=== PATIENT | female | born 1930 | race Caucasian/White ===

== ENCOUNTER 2016-08-13 17:36 | Observation (INO) | payer MEDICARE, BC ==
[2016-08-13] MEDS ORDERED: SODIUM CHLORIDE 0.9% 1,000 ML IV ONE ×2 (18:04→20:58)
[2016-08-13] MEDS ORDERED: DIPH,PERTUS(ACELL)TETVAC-LF 0.5 ML VIAL IM ONE (18:10)
[2016-08-13 18:35] LABS: Basophils % (A) 0 %; CH 30.2; CHCM 33.6; Eosinophils # (A) 0.1 k/uL (0-0.7); Eosinophils % (A) 2 %; HCT 39.7 % (34.0-46.0); HDW 2.65; HGB 13.4 gm/dL (11.4-16.0); Luc # (Auto) 0.11; Luc % (Auto) 2; Lymphocytes # (A) 1.3 k/uL (1.0-4.8); Lymphocytes % (A) 23 %; MCH 30.6 pg (25.0-35.0); MCHC 33.8 g/dL (31.0-37.0); MCV 90.5 fL (80.0-100.0); Mean Platelet Volume 6.9; Monocytes # (A) 0.3 k/uL (0-1.0); Monocytes % (A) 6 %; Neutrophils # (A) 3.8 k/uL (1.3-7.7); Neutrophils % (A) 67 %; RBC 4.39 m/uL (3.80-5.40); RDW 15.2 % (11.5-15.5); WBC 5.6 k/uL (3.8-10.6); WBC (Perox) 5.27
--- NOTE | 2016-08-13 18:49 | CT ---
EXAMINATION TYPE: CT brain lynette delgadillo DATE OF EXAM: 08/13/2016 6:43 PM COMPARISON: NONE HISTORY: Syncope with fall injury today. CT DLP: 1241.5 mGycm Automated exposure control for dose reduction was used. TECHNIQUE: CT scan of the head and cervical spine are performed without contrast. FINDINGS: There is cerebral cortical atrophy. There is patchy hypodensity in the periventricular wh ite matter. There is no mass effect nor midline shift. There is enlargement of the ventricles. There is no sign of intracranial hemorrhage. Calvarium is intact. There is mucosal thickening and fluid lev el in the left maxillary sinus. I see no fracture. There is a few millimeter anterior subluxation of C3 in relation to C4. There is degenerative disc sp armand narrowing at C3-4 C5-6 C6-7 with spurring of the endplates. Skull base appears intact. There is o steopenia. IMPRESSION: Cerebral atrophy and chronic small vessel ischemia. Normal pressure type hydrocephalus. No acute intr acranial abnormality. Left maxillary sinusitis. Spondylotic changes in the cervical spine. No fracture seen.
[2016-08-13 18:50] LABS: ALT 31 U/L (9-52); AST 29 U/L (14-36); Alkaline Phosphatase 91 U/L (38-126); Anion Gap 10 mmol/L; Blood Urea Nitrogen 17 mg/dL (7-17); Calcium 9.1 mg/dL (8.4-10.2); Carbon Dioxide 31 mmol/L (22-30); Chloride 104 mmol/L (98-107); Glucose 90 mg/dL (74-99); Non-African American GFR(MDRD) 55 (>60 ml/min/1.73 sqM); Potassium 4.1 mmol/L (3.5-5.1); Sodium 145 mmol/L (137-145); Total Bilirubin 0.4 mg/dL (0.2-1.3); Total Protein 7.6 g/dL (6.3-8.2)
--- NOTE | 2016-08-13 19:48 | XR ---
EXAMINATION TYPE: XR knee complete RT DATE OF EXAM: 08/13/2016 7:33 PM COMPARISON: NONE HISTORY: Fell on the cement TECHNIQUE: 3 views FINDINGS: There is a right knee prosthesis. I see no fracture nor dislocation. There is mild spurring at the tibial tubercle. IMPRESSION: No acute abnormality of the right knee.
--- NOTE | 2016-08-13 19:53 | ED ---
Fall HPI <EagleFreedom Jayda - Last Filed: 08/13/16 20:12> - General Source: EMS Mode of arrival: EMS <Naif London - Last Filed: 08/13/16 20:58> - General Chief Complaint: Fall Stated Complaint: Fall/Syncope Time Seen by Provider: 08/13/16 17:48 - History of Present Illness Initial Comments: 86 years old female she was walking towards her car and she fell down and she thinks that there was any palpitation or chest pain prior to the fall she did lose consciousness during the fall was very short time she hit her head on a hard surface and there is a laceration on the left eyebrow she is not quite sure about the tetanus will provide an update the period she denies any chest pain or shortness of breath she does have a mild pain in the neck as well as headache no blurred vision no abdominal pain she denies any other trauma except some pain in the right knee she status post total knee which is complaining about mild discomfort there anything before the fall she said she fell (Naif London) - Related Data Home Medications Medication Instructions Recorded Confirmed Albuterol Sulfate [Proair Hfa] 1 - 2 puff INHALATION RT-Q6H PRN 08/13/16 Atorvastatin Calcium [Lipitor] 80 mg PO DAILY 08/13/16 08/13/16 Budesonide-Formot 160-4.5 Mcg 2 puff INHALATION RT-BID 08/13/16 08/13/16 [Symbicort 160-4.5 Mcg Inhaler] Cholecalciferol [Vitamin D3] 5,000 unit PO DAILY 08/13/16 08/13/16 Loperamide [Imodium] 2 mg PO BID PRN 08/13/16 08/13/16 Mirabegron [Myrbetriq] 50 mg PO DAILY 08/13/16 08/13/16 Tiotropium 18 Mcg/Puff [Spiriva] 1 cap INHALATION RT-DAILY 08/13/16 08/13/16 Vit C/E/Zn/Coppr/Lutein/Zeaxan 1 cap PO BID 08/13/16 08/13/16 [Preservision Areds 2 Softgel] carBAMazepine [TEGretol] 400 mg PO BID PRN 08/13/16 08/13/16 Previous Rx's Medication Instructions Recorded Amoxicillin 500 mg PO Q8H #30 capsule 08/13/16 Allergies Allergy/AdvReac Type Severity Reaction Status Date / Time guaifenesin [From Mucinex] Allergy Unknown Verified 08/13/16 19:01 codeine AdvReac Abdominal Verified 08/13/16 19:01 Pain Review of Systems ROS Other: All systems not noted in ROS Statement are negative. <Freedom Guillermo - Last Filed: 08/13/16 20:12> ROS Other: All systems not noted in ROS Statement are negative. <Naif London - Last Filed: 08/13/16 20:58> ROS Statement: Those systems with pertinent positive or pertinent negative responses have been documented in the HPI. Past Medical History Past Medical History: Asthma, Coronary Artery Disease (CAD), COPD, Hyperlipidemia, Osteoarthritis (OA) Additional Past Medical History / Comment(s): "weak bladder" History of Any Multi-Drug Resistant Organisms: None Reported Past Surgical History: Heart Catheterization With Stent, Tonsillectomy Past Psychological History: No Psychological Hx Reported Smoking Status: Former smoker Past Alcohol Use History: Occasional Past Drug Use History: None Reported <Naif London - Last Filed: 08/13/16 20:58> General Exam <Freedom Guillermo - Last Filed: 08/13/16 20:12> <SuryaNaif - Last Filed: 08/13/16 20:58> - General Exam Comments Initial Comments: General: The patient is awake and alert, in no distress, and does not appear acutely ill. GCS is 15 Skin: Skin is warm and dry and no rashes or lesions are noted. Has elected laceration on the top of the left eyebrow Eye: Pupils are equal, round and reactive to light, extra-ocular movements are intact; there is normal conjunctiva bilaterally. Ears, nose, mouth and throat: There are moist mucous membranes and no oral lesions. Neck: The neck is supple, there is no tenderness or JVD. Cardiovascular: There is a regular rate and rhythm. No murmur, rub or gallop is appreciated. Respiratory: To auscultation bilateral, no wheezing no rhonchi no distress respiratory west noticed Gastrointestinal: Soft, non-distended, non-tender abdomen without masses or organomegaly noted. There is no rebound or guarding present. Bowel sounds are unremarkable. Back: There is no tenderness to palpation in the midline. There is no obvious deformity. Musculoskeletal: Normal ROM, no tenderness, There is no pedal edema. There is no calf tenderness or swelling. No cords were appreciated. Neurological: CN II-XII intact, Cranial nerves III through XII are intact. There are no obvious motor or sensory deficits. Coordination appears grossly intact. Speech is normal. Psychiatric: Cooperative, appropriate mood & affect, normal judgment. (Naif London) Course <Freedom Guillermo - Last Filed: 08/13/16 20:12> <Naif London - Last Filed: 08/13/16 20:58> Vital Signs 08/13/16 08/13/16 08/13/16 17:40 18:48 19:07 Temperature 97 F L Pulse Rate 86 86 82 Respiratory 18 16 18 Rate Blood Pressure 157/92 150/70 153/70 O2 Sat by Pulse 95 94 L 94 L Oximetry 08/13/16 20:53 Temperature Pulse Rate 84 Respiratory 16 Rate Blood Pressure 161/74 O2 Sat by Pulse 95 Oximetry It is normal sinus rhythm ventricular rate is 85 AK interval is 164 QRS duration is 100 QT/QTc is 380/452, review of this EKG showed no ST elevation, no T-wave inversion noticed some artifact. We did the laceration repair she had a sandwich to eat pain now she is not comfortable going home is requesting to be observed overnight she feels shaky ( Naif London) Procedures - Laceration Laceration #1 Consent Obtained: verbal consent Indication: laceration Site: face (3 cm left eyebrow) Size (cm): 3 Description: irregular Depth: simple, single layer Anesthetic Used: lidocaine 1%, without epi Anesthesia Technique: local infiltration Amount (mls): 5 Pre-repair: wound explored, irrigated extensively, deep structures intact Type of Sutures: nylon Size of Sutures: 6-0 Number of Sutures: 7 Technique: simple, interrupted Patient Tolerated Procedure: well, no complications <Freedom Guillermo - Last Filed: 08/13/16 20:12> Medical Decision Making - Lab Data Result diagrams: 08/13/16 17:51 08/13/16 17:51 <Freedom Guillermo - Last Filed: 08/13/16 20:12> - Lab Data Result diagrams: 08/13/16 17:51 08/13/16 17:51 <Naif London - Last Filed: 08/13/16 20:58> - Lab Data Lab Results 08/13/16 08/13/16 08/13/16 Range/Units 17:51 17:51 17:51 WBC 5.6 (3.8-10.6) k/uL RBC 4.39 (3.80-5.40) m/uL Hgb 13.4 (11.4-16.0) gm/dL Hct 39.7 (34.0-46.0) % MCV 90.5 (80.0-100.0) fL MCH 30.6 (25.0-35.0) pg MCHC 33.8 (31.0-37.0) g/dL RDW 15.2 (11.5-15.5) % Plt Count 175 (150-450) k/uL Neutrophils % 67 % Lymphocytes % 23 % Monocytes % 6 % Eosinophils % 2 % Basophils % 0 % Neutrophils # 3.8 (1.3-7.7) k/uL Lymphocytes # 1.3 (1.0-4.8) k/uL Monocytes # 0.3 (0-1.0) k/uL Eosinophils # 0.1 (0-0.7) k/uL Basophils # 0.0 (0-0.2) k/uL Sodium 145 (137-145) mmol/L Potassium 4.1 (3.5-5.1) mmol/L Chloride 104 (98-107) mmol/L Carbon Dioxide 31 H (22-30) mmol/L Anion Gap 10 mmol/L BUN 17 (7-17) mg/dL Creatinine 0.96 (0.52-1.04) mg/dL Est GFR (MDRD) Af Amer >60 (>60 ml/min/1.73 sqM) Est GFR (MDRD) Non-Af 55 (>60 ml/min/1.73 sqM) Glucose 90 (74-99) mg/dL Calcium 9.1 (8.4-10.2) mg/dL Total Bilirubin 0.4 (0.2-1.3) mg/dL AST 29 (14-36) U/L ALT 31 (9-52) U/L Alkaline Phosphatase 91 (38-126) U/L Troponin I <0.012 (0.000-0.034) ng/mL Total Protein 7.6 (6.3-8.2) g/dL Albumin 4.4 (3.5-5.0) g/dL Disposition <Freedom Guillermo - Last Filed: 08/13/16 20:12> <Naif London - Last Filed: 08/13/16 20:58> Clinical Impression: Head injury, Facial trauma, Facial laceration, Sinusitis, Concussion Disposition: ADMITTED IP TO THIS HOSP Condition: Fair Instructions: Fall Prevention for Older Adults (ED) Prescriptions: Amoxicillin 500 mg PO Q8H #30 capsule Referrals: Dedrick Enriquez MD [Primary Care Provider] - 1-2 days
--- NOTE | 2016-08-13 19:55 | XR ---
EXAMINATION TYPE: XR facial bones complete DATE OF EXAM: 08/13/2016 7:33 PM COMPARISON: NONE HISTORY: Fell on the cement TECHNIQUE: 3 views FINDINGS: Orbital margins appear intact. Maxilla appears intact. Nasal bone appears intact. The paran alfredo sinuses show fairly normal aeration. IMPRESSION: Negative facial bone exam.
[2016-08-13] MEDS ORDERED: ALBUTEROL NEBULIZED 2.5 MG/3 ML INHALATION PRN (21:01)
[2016-08-13] MEDS ORDERED: LOPERAMIDE 2 MG CAP PO PRN (21:01)
[2016-08-13] MEDS ORDERED: AMOXICILLIN 250 MG CAP PO STA (21:02)
[2016-08-14] MEDS: AMOXICILLIN 500 MG CAP PO SCH ×4 (03:49→23:14)
[2016-08-14] MEDS: TIOTROPIUM 18 MCG/PUFF INHALER INHALATION SCH ×2 (07:31→07:33)
[2016-08-14] MEDS: SYMBICORT 160-4.5 MCG INHALER INHALATION SCH ×3 (07:32→20:15)
[2016-08-14] MEDS ORDERED: ATORVASTATIN 80 MG TAB PO SCH (09:00)
[2016-08-14] MEDS: CHOLECALCIFEROL 1,000 UNIT TAB PO SCH (09:12)
[2016-08-14] MEDS: OXYBUTYNIN 10 MG TAB.ER.24 PO SCH (09:12)
[2016-08-14] MEDS: VIT A,C & E-LUTEIN-MINERALS 1 EACH TAB PO SCH ×3 (09:12→23:14)
[2016-08-14] MEDS ORDERED: ACETAMINOPHEN TAB 325 MG TAB PO PRN (11:57)
[2016-08-14] MEDS: carBAMazepine 200 MG TAB PO PRN (12:30)
[2016-08-15] MEDS: SYMBICORT 160-4.5 MCG INHALER INHALATION SCH ×2 (07:36→21:49)
[2016-08-15] MEDS: TIOTROPIUM 18 MCG/PUFF INHALER INHALATION SCH (07:39)
--- NOTE | 2016-08-15 07:55 | HP ---
DATE OF ADMISSION: REASON FOR ADMISSION: A fall. HISTORY OF PRESENTING ILLNESS: This is an 86-year-old lady that apparently was brought into the hospital via EMS after sustaining a fall while patient was walking towards her car at the [facility] [employer]. Patient apparently lives alone. Has sustained another fall 2 weeks prior. Patient does not recall the incident at all. States that she last remembers walking close to car and does not remember until being admitted to the hospital. In the emergency room, patient was noted to have a large ecchymosis around her left eye with an abrasion. Patient was evaluated. Most of the history is obtained from repeated questioning of the patient. Patient does not recall how she sustained a fall the previous time as well. Denies having any chest pain, palpitations, nausea, vomiting. Patient, however, loses consciousness both times. A CT scan of the head did not reveal any acute abnormalities. There is some concern for dilated ventricles. During my evaluation, I did make the patient ambulate. Her gait was appreciated to be within normal limits. Patient uses a cane for ambulation. Denies any blurry vision. She recently even had cataract surgeries. No change in vision at night time. Patient states that her past history is she has had a TX in the past; however, no intervention was done at that time. EKG ordered stat by me during my evaluation revealed some changes in the lateral leads that appear to be new. Patient, however, denies having any chest pain, blurry vision, headaches, nausea, vomiting, diarrhea, or urinary urgency or frequency at this time. Past medical history includes remote history of TX, dyslipidemia, remote history of COPD, vitamin D3 insufficiency and trigeminal neuralgia. Medications include: 1. Tegretol. 2. PreserVision softgel. 3. Spiriva. 4. Myrbetriq. 5. Loperamide. 6. Vitamin D3. 7. Symbicort. 8. Atorvastatin. 9. Albuterol. Allergies include GUAIFENESIN and CODEINE. REVIEW OF SYSTEMS: Fourteen point review of systems was done, none pertinent than otherwise described in HPI. Past medical history includes COPD, coronary artery disease, dyslipidemia, osteoarthritis, Surgical history includes cardiac catheterization; however, this was not reported by the patient; tonsillectomy. SOCIAL HISTORY: Lives alone. Denies any alcohol, drug or tobacco use at the current time. Does state to have remote smoking history. PHYSICAL EXAM: VITALS: Temperature 97.2, heart rate is 87, respiratory rate 16, blood pressure 129/69, saturating 94% on room air. GENERAL APPEARANCE: Alert, oriented x3. Does not appear to be in distress. Head is traumatic with a large left-sided hematoma around the left eye with an abrasion. Denies any change in vision. Pupils are equal, round, and react to light and accommodation. Conjunctiva appears to be within normal limits. Neck is supple. No JVD. Range of motion appears to be okay, no rigidity appreciated. LUNGS: Good air movement. Clear to auscultation. No rhonchi or wheezing appreciated. HEART: S1, S2 heard. A faint systolic murmur is appreciated at the apex. ABDOMEN: Soft, nontender, no organomegaly. LOWER EXTREMITIES: 1+ edema noted with chronic skin changes. NEURO: Moves all 4 extremities. No focal motor or sensory deficits noted. Gait is within normal limits. LABORATORY DATA: Hemoglobin 13.4, hematocrit 39.7. White count is 5.6, platelets 175. Sodium 145, potassium 4.1, chloride 104, bicarbonate 31, BUN 17, creatinine 0.96. Initial troponin was less than 0.012. ASSESSMENT AND PLAN: 1. Syncope, need to rule out a cardiogenic etiology. 2. Fall, status post trauma to the left orbit without any change in vision. 3. Chronic obstructive pulmonary disease. 4. Coronary artery disease. 5. Dyslipidemia. 6. Vitamin D insufficiency. PLAN: Cardiac enzymes x3 will be done. Echocardiogram will be ordered. Orthostatics will be done however, during my evaluation patient did not appear to be orthostatic. Gait was assessed. Patient also does state to have some question of urinary incontinence in the recent times and she has not been able to manage her own accounts or do her taxes although she states that she used to enjoy doing those activities in the past. I did discuss with the patient regarding evaluation for syncope as patient did lose consciousness, lives alone, that it is unsafe for her to be discharged home. 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 A cardiology consultation will also be obtained. If there is some concern about seizure activity then a neurology consultation would be indicated obtaining EEG while the patient is normal does not usually reveal a positive study. Patient did verbalize to understand my concerns and agreed to stay in the hospital.
[2016-08-15] MEDS: CHOLECALCIFEROL 1,000 UNIT TAB PO SCH (08:55)
[2016-08-15] MEDS: carBAMazepine 200 MG TAB PO PRN ×2 (08:55→22:28)
[2016-08-15] MEDS: AMOXICILLIN 500 MG CAP PO SCH ×3 (08:55→23:15)
[2016-08-15] MEDS: OXYBUTYNIN 10 MG TAB.ER.24 PO SCH (08:55)
[2016-08-15] MEDS: VIT A,C & E-LUTEIN-MINERALS 1 EACH TAB PO SCH ×2 (09:36→22:27)
[2016-08-15] MEDS: ATORVASTATIN 40 MG TAB PO SCH (09:36)
--- NOTE | 2016-08-15 09:38 | US ---
EXAMINATION TYPE: US carotid duplex BILAT DATE OF EXAM: 08/15/2016 9:26 AM COMPARISON: NONE CLINICAL HISTORY: Syncope, Seizure. EXAM MEASUREMENTS: RIGHT: Peak Systolic Velocity (PSV) cm/sec ----- Right CCA: 67.1 ----- Right ICA: 64.9 ----- Right ECA: 80.7 ICA/CCA ratio: 1.0 RIGHT: End Diastole cm/sec ----- Right CCA: 17.5 ----- Right ICA: 19.7 ----- Right ECA: 0 LEFT: Peak Systolic Velocity (PSV) cm/sec ----- Left CCA: 68.1 ----- Left ICA: 88.3 ----- Left ECA: 63.0 ICA/CCA ratio: 1.3 LEFT: End Diastole cm/sec ----- Left CCA: 21.3 ----- Left ICA: 22.6 ----- Left ECA: 7.5 VERTEBRALS (direction of flow): Right Vertebral: Antegrade Left Vertebral: Antegrade atherosclerotic changes bilateral bulbs No significant stenosis IMPRESSION: I DO NOT SEE EVIDENCE OF A HEMODYNAMICALLY SIGNIFICANT STENOSIS IN EITHER CAROTID SYSTEM. Criteria for Assigning % of Stenosis / Diameter reduction (Estimation based on the indirect measurements of the internal carotid artery velocities (ICA PSV). 1. Normal (no stenosis)=ICA PSV < 125 cm/s: ratio < 2.0: ICA EDV<40 cm/s. 2. Less than 50% stenosis=ICA PSV < 125 cm/s: ratio < 2.0: ICA EDV<40 cm/s. 3. 50 to 69% stenosis=ICA PSV of 125 to 230 cm/s: ration 2.0 ? 4.0: ICA EDV 40-100 cm/s. 4. Greater than 70% stenosis to near occlusion= ICA PSV > 230 cm/s: ratio > 4.0: ICA EDV > 100 cm/s. 5. Near occlusion= ICA PSV velocities may be low or undetectable: variable ratio and ICA EDV. 6. Total occlusion=unable to detect flow.
--- NOTE | 2016-08-15 10:17 | CONS ---
DATE OF CONSULTATION: This is an 86-year-old lady with a known history of CAD, previous stenting of mid LAD performed in 2005. She [address] Dr[address] Enriquez in the outpatient setting. She also has a diagnosis of hypertensive cardiovascular disease as well. She has trigeminal neuralgia for which she takes Tegretol. She came into the hospital after an episode of what seems to be a syncope. She went to get [place] food, came out of the restaurant and the next thing she remembers is having fallen down. Apparently, she did loose consciousness. She fell on a hard surface has a laceration of the left eyebrow as well. She was walking towards her care and she thinks she was trying to put the foot in the passenger side of vehicle. She has no memory of exactly the details of what happened but apparently some onlookers were the ones that were providing some of the information. She came in with some hematoma on the left eyebrow area but there is no significant injury or fracture. Since arrival, she was on the monitor for a short while, then she did not want to be on the monitor so she has not been in a monitored setting. However, during that time she was monitored, there was no evidence of any tachy or bradyarrhythmia. At the time of my evaluation, she is able to give me the history but does not remember the episode that happened at that time. It is quite possible that this could be a syncope or a seizure. She has had several episodes when she feels that she stumbles and falls for no good reason, some time she tripped, some time she does not trip. These have happened before, but this is probably the most serious episode. EMS brought her to the emergency room after a fall and syncope that happened on August 13 at about 6 p.m. PAST MEDICAL HISTORY: 1. CAD with stenting of mid LAD in 2005 for an acute anterior MN type picture. 2. Hypertension. 3. Hypercholesterolemia. 4. History of trigeminal neuralgia. 5. Osteoarthritis. 6. Bronchial asthma. Medications at home include Symbicort inhaler, Imodium, Tegretol 400 mg b.i.d., vitamin supplements and Spiriva inhaler. ALLERGIES: She is allergic to CODEINE and MUCINEX. On examination, blood pressure is 130/70, pulse rate is 80 per minute. HEENT: Unremarkable. Fundus was not examined by me. Neck is supple. There is no JVD. I do not hear a carotid bruit. Heart exam reveals S1 and S2 heard normally. No significant rub, murmur or gallop. Lungs are clear. Abdomen is soft, nontender. Lower extremities reveal normal pulses. No edema. Central nervous system grossly no focal deficits. There is evidence of hematoma over the left eye where she fell and had hurt herself. 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 No acute changes. Laboratory data revealed the troponins are normal. TSH was modestly elevated at 6.2. IMPRESSION: 1. Syncope, probably cardiogenic, cannot rule out seizure disorder. 2. History of trigeminal neuralgia. 3. History of coronary artery disease with previous left anterior descending artery stenting performed more than 10 years ago with a Taxus drug-eluting stent. 4. Hyperlipidemia. RECOMMENDATIONS: I am recommending that we monitor her for at least 24 hours, keep the IV at 0.9 saline KVO, seek Neurology input, carotid Doppler, decrease the Lipitor to 40 mg daily and check FT4 and based on this, I will make further recommendations. She will require probably at least a 30-day event monitor as well. I will see input from Neurology also. I discussed my thoughts in detail with the patient. Thank you very much for the consult.
--- NOTE | 2016-08-15 11:02 | ECHOF ---
Referral Reason:syncope MEASUREMENTS -------- HEIGHT: 165.1 cm WEIGHT: 72.1 kg BP: 158/74 RVIDd: 2.3 cm (< 3.3) IVSd: 1.2 cm (0.6 - 1.1) LVIDd: 3.8 cm (3.9 - 5.3) LVPWd: 1.2 cm (0.6 - 1.1) IVSs: 1.2 cm LVIDs: 2.7 cm LVPWs: 1.3 cm LAESV Index (A-L): 24.29 ml/m Ao Diam: 2.7 cm (2.0 - 3.7) AV Cusp: 1.6 cm (1.5 - 2.6) LA Diam: 3.6 cm (2.7 - 3.8) MV EXCURSION: 9.436 mm (> 18.000) MV EF SLOPE: 61 mm/s (70 - 150) EPSS: 0.4 cm MV E Lamont: 0.74 m/s MV DecT: 193 ms MV A Lamont: 1.07 m/s MV E/A Ratio: 0.70 FINDINGS -------- Sinus rhythm. This was a technically adequate study. There is mild concentric left ventricular hypertrophy. Overall left ventricular systolic function is mild-moderately impaired with, an EF between 40 - 45 %. Anterseptal Hypokinesis Septal Hypokinesis The right ventricle is normal in size. Normal LA size by volume 22+/-6 ml/m2. The right atrial size is normal. There is mild aortic valve sclerosis. There is no evidence of aortic regurgitation. Mild mitral annular calcification present. Mild mitral regurgitation is present. Mild tricuspid regurgitation present. There is no evidence of pulmonary hypertension. The right ventricular systolic pressure, as measured by Doppler, is {RVSP}. There is no pulmonic regurgitation present. The aortic root size is normal. There is no pericardial effusion. CONCLUSIONS -------- 1. There is mild concentric left ventricular hypertrophy. 2. The right ventricular systolic pressure, as measured by Doppler, is {RVSP}. 3. Overall left ventricular systolic function is mild-moderately impaired with, an EF between 40 - 45 %. 4. Anterseptal Hypokinesis 5. Septal Hypokinesis 6. There is mild aortic valve sclerosis. 7. Mild mitral annular calcification present. 8. Mild mitral regurgitation is present. 9. Mild tricuspid regurgitation present. 10. There is no evidence of pulmonary hypertension. POLE SHAVER: Rossana Lucio RDCS
--- NOTE | 2016-08-15 18:12 | P.CNNES ---
History of Present Illness Consult date: 08/15/16 Reason for Consult: Patient admitted with frequent falls and closed head injury. History of Present Illness: This patient is a 86-year-old right-handed white female who was admitted to Hospital after she apparently had a syncopal episode while out at a restaurant. Apparently she was out having [place] food and was coming out of the restaurant and attempting to get into her car and apparently blacked out. She has no clear memory as to what was the cause of her syncopal episode. She apparently fell down and struck the road and sustained a laceration to the left eyebrow as well as a periorbital contusion. She only remembers walking towards the car. She had no memory of the event but remembers coming around in the ambulance to the emergency room. The patient was seen in the emergency room by Dr. London. He had ordered a computed tomography scan of the brain as well as CT of the cervical spine. CAT scan of the brain revealed cerebral atrophy and chronic small vessel ischemic changes. 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 No other acute abnormalities were noted. CT of the cervical spine reveals subluxation of C3 over C4. No acute fractures were detected. The patient has a history of underlying heart disease. She underwent stent placement to the LAD in 2005. Stent was placed and she has been taking Plavix but apparently discontinued Plavix and aspirin due to easy bruising about a year ago. Patient was admitted to the hospital for further evaluation. She underwent a carotid Doppler ultrasound which revealed no significant carotid artery stenosis. She underwent an echocardiogram which revealed ejection fraction of 40%. There was septal hypokinesis noted. Cardiology was consulted for further evaluation. She is being evaluated for possibility of cardiogenic syncope. Patient denies any previous history of seizures or head trauma head injury. Apparently in the last month she has sustained 2 falls with injury to the periorbital region. Patient does have swelling and periorbital ecchymosis involving the left eye currently. Review of her CAT scan of the brain reveals multiple areas of hypodensity of unclear etiology. She does have a history of small cell lung cancer which was diagnosed 5 years ago. She states she underwent chemotherapy and radiation therapy. Patient is also being treated for trigeminal neuralgia. She is on Tegretol for this condition. Patient is now admitted and neurology has been consulted for further evaluation and recommendations. Review of Systems Constitutional: Denies chills, Denies fever Eyes: denies blurred vision, denies pain Ears, nose, mouth and throat: Denies headache, Denies sore throat Cardiovascular: Denies chest pain, Denies shortness of breath Respiratory: Denies cough Gastrointestinal: Denies abdominal pain, Denies diarrhea, Denies nausea, Denies vomiting Genitourinary: Denies dysuria, Denies hematuria Musculoskeletal: Denies myalgias Integumentary: Denies pruritus, Denies rash Neurological: Reports change in mentation, Reports confusion, Reports gait dysfunction, Reports memory loss, Reports paresthesias, Reports syncope, Denies numbness, Denies weakness Psychiatric: Denies anxiety, Denies depression Endocrine: Denies fatigue, Denies weight change Past Medical History Past Medical History: Asthma, Coronary Artery Disease (CAD), Cancer, COPD, Hyperlipidemia, Myocardial Infarction (PA) Additional Past Medical History / Comment(s): "weak bladder", small cell carcinoma chemo and radiation Last Myocardial Infarction Date:: unknown History of Any Multi-Drug Resistant Organisms: None Reported Past Surgical History: Heart Catheterization With Stent, Tonsillectomy Additional Past Surgical History / Comment(s): right knee and left hip replacement Date of Last Stent Placement:: unknown Past Psychological History: No Psychological Hx Reported Smoking Status: Former smoker Past Alcohol Use History: Occasional Past Drug Use History: None Reported - Past Family History Mother Family Medical History: No Reported History Father Family Medical History: CVA/TIA, Myocardial Infarction ([place]) Medications and Allergies Home Medications Medication Instructions Recorded Confirmed Type Albuterol Sulfate [Proair Hfa] 1 - 2 puff INHALATION RT-Q6H PRN 08/13/16 History Atorvastatin Calcium [Lipitor] 80 mg PO DAILY 08/13/16 08/13/16 History Budesonide-Formot 160-4.5 Mcg 2 puff INHALATION RT-BID 08/13/16 08/13/16 History [Symbicort 160-4.5 Mcg Inhaler] Cholecalciferol [Vitamin D3] 5,000 unit PO DAILY 08/13/16 08/13/16 History Loperamide [Imodium] 2 mg PO BID PRN 08/13/16 08/13/16 History Mirabegron [Myrbetriq] 50 mg PO DAILY 08/13/16 08/13/16 History Tiotropium 18 Mcg/Puff [Spiriva] 1 cap INHALATION RT-DAILY 08/13/16 08/13/16 History Vit C/E/Zn/Coppr/Lutein/Zeaxan 1 cap PO BID 08/13/16 08/13/16 History [Preservision Areds 2 Softgel] carBAMazepine [TEGretol] 400 mg PO BID PRN 08/13/16 08/13/16 History Allergies Allergy/AdvReac Type Severity Reaction Status Date / Time guaifenesin [From Mucinex] Allergy Unknown Verified 08/13/16 19:01 codeine AdvReac Abdominal Verified 08/13/16 19:01 Pain Physical Examination - Vital Signs Vital Signs: Vital Signs Temp Pulse Pulse Pulse Pulse Resp BP 08/15/16 15:54 98.1 F 93 18 134/75 08/15/16 12:00 97.4 F L 86 96 83 18 129/69 08/15/16 07:43 97.5 F L 84 18 08/15/16 03:51 81 16 08/15/16 03:44 97.7 F 79 16 08/15/16 00:00 84 16 08/14/16 23:41 97.7 F 82 16 08/14/16 20:00 97.9 F 88 16 BP BP BP Pulse Ox 08/15/16 15:54 93 L 08/15/16 12:00 126/67 116/57 95 08/15/16 07:43 129/70 94 L 08/15/16 03:51 08/15/16 03:44 158/74 92 L 08/15/16 00:00 08/14/16 23:41 143/76 94 L 08/14/16 20:00 125/65 95 Intake and Output 08/15/16 08/15/16 08/15/16 06:59 14:59 22:59 Intake Total 240 Balance 240 Intake: Oral 240 Other: Voiding Method Toilet Toilet # Voids 1 Weight 72 kg Patient Weight 08/16/16 06:59 Weight 72 kg - Constitutional General appearance: average body habitus, cooperative - EENT EENT: PERRL, mucous membranes moist - Respiratory Respiratory: lungs clear, normal breath sounds - Cardiovascular Cardiovascular: regular rate, normal S1, normal S2 Extremities: no peripheral edema bilaterally - Gastrointestinal Gastrointestinal: normoactive bowel sounds - Integumentary Integumentary: normal - Neurologic Cranial nerve examination: PERRL, EOMI, VFF, V1/V2/V3 grossly intact, tongue midline, intact gag reflex, intact corneal reflex, normal palatal elevation Speech examination: intact Sensorimotor examination: intact Detailed motor examination: grossly full strength in all extremities Motor examination - right side: 4/5: biceps, triceps, wrist flexion, wrist extension, green hide inspector, hip flexors, knee extensors, dorsiflexion, toe extension (EHL) , plantarflexion Motor examination - left side: 4/5: biceps, triceps, wrist flexion, wrist extension, green hide inspector, hip flexors, knee extensors, dorsiflexion, toe extension (EHL) , plantarflexion Detailed sensory examination: intact Reflex and gait examination: intact Reflexes: 1+: ankle, bicep, knee, tricep - Musculoskeletal Musculoskeletal: no pain - Psychiatric Psychiatric: mood/affect appropriate, cooperative Results - Laboratory Findings CBC and BMP: 08/13/16 17:51 08/13/16 17:51 Abnormal Lab Findings: Abnormal Labs 08/15/16 06:32 TSH 6.270 H Assessment and Plan (1) Vasovagal syncope Status: Acute Code(s): R55 - SYNCOPE AND COLLAPSE (2) Closed head injury Status: Acute Code(s): S09.90XA - UNSPECIFIED INJURY OF HEAD, INITIAL ENCOUNTER (3) Concussion Status: Acute Code(s): S06.0X9A - CONCUSSION W LOSS OF CONSCIOUSNESS OF UNSP DURATION, INIT (4) Facial laceration Status: Acute Code(s): S01.81XA - LACERATION W/O FOREIGN BODY OF OTH PART OF HEAD, INIT ENCNTR Plan: This patient is a 86-year-old female was admitted to hospital after suffering acute syncopal episode. Patient was at a restaurant was returning to her car when she went down suddenly. She sustained laceration and contusion to the left periorbital region of the face. She does not have memory of the actual details of the event. EMS was called and she was brought into the emergency room where she was seen in the ER by Dr. London. Computed tomography scan of the brain and cervical spine was completed. CT of the brain revealed cerebral atrophy and normal pressure-type hydrocephalus. Review the CAT scan however reveals only ventriculomegaly with multiple areas of hypodensity of unclear etiology. Patient does have a history of small cell lung cancer. Be recommending an MRI of the brain for further evaluation. We will also obtain an EEG for further evaluation of seizure disorder. Patient was advised of the [employer] driving law which states she should not be driving for appeared 6 months following any syncopal episode and/or seizure. Depending on the test results further recommendations will be given. Her carotid Doppler failed to reveal any evidence of severe carotid artery stenosis. Her echocardiogram of the heart does reveal septal hypokinesis. We will await further recommendations from cardiology. Her overall prognosis at this time remains very guarded. Time with Patient: Greater than 30
[2016-08-15 21:19] VITALS: RESP 16
--- NOTE | 2016-08-15 21:33 | PN ---
Patient is an 86-year-old lady admitted for syncopal episodes. Patient was evaluated by Cardiology, awaiting evaluation by Neurology. Patient has multiple such episodes in the past. Patient only takes carbamazepine on as-needed basis for trigeminal neuralgia. REVIEW OF SYSTEMS: CARDIOVASCULAR: No chest pain, no orthopnea, no PND, no palpitations. PULMONARY: Denied any shortness of breath. No cough or hemoptysis. GASTROINTESTINAL: No diarrhea, nausea or vomiting. No abdominal pain. Normoactive bowel sounds. NEUROLOGIC: No headaches, no weakness, no numbness. Medications were reviewed. PHYSICAL EXAMINATION: VITAL SIGNS: Temperature 97.4, pulse of 84, respiratory rate of 18, blood pressure is 139/69, saturating at 95% on room air. GENERAL: The patient is alert and oriented x3, not in any acute distress. Well developed, well nourished. HEENT: Pupils are round and equally reacting to light. EOMI. No scleral icterus. No conjunctival pallor. Normocephalic, atraumatic. No pharyngeal erythema. No thyromegaly. CARDIOVASCULAR: S1 and S2 present. No murmurs, rubs, or gallops. PULMONARY: Chest is clear to auscultation, no wheezing or crackles. ABDOMEN: Soft, nontender, nondistended, normoactive bowel sounds. No palpable organomegaly. MUSCULOSKELETAL: No joint swelling or deformity. EXTREMITIES: No cyanosis, clubbing, or pedal edema. NEUROLOGICAL: Gross neurological examination did not reveal any focal deficits. SKIN: No rashes. ASSESSMENT AND PLAN: 1. Syncope. Patient's echocardiogram essentially within normal limits. Patient will be discharged on Holter monitor. Cardiology evaluated the patient. 2. Chronic obstructive pulmonary disease without any acute exacerbation. 3. Coronary artery disease. 4. Dyslipidemia. PLAN: Get neurological evaluation. Etiology of her multiple syncopes is unknown at this point of time and patient will be discharged with a Holter monitor, but patient is expected to have post concussion dizziness to last for a few weeks, but because of the syncopes and as patient lives alone and because of her age, there remain significant concerns about her safety. Neurology was consulted.
[2016-08-16] MEDS: SYMBICORT 160-4.5 MCG INHALER INHALATION SCH (08:45)
[2016-08-16] MEDS: TIOTROPIUM 18 MCG/PUFF INHALER INHALATION SCH (08:45)
[2016-08-16] MEDS: AMOXICILLIN 500 MG CAP PO SCH (09:45)
[2016-08-16] MEDS: ATORVASTATIN 40 MG TAB PO SCH (09:45)
[2016-08-16] MEDS: OXYBUTYNIN 10 MG TAB.ER.24 PO SCH (09:45)
[2016-08-16] MEDS: CHOLECALCIFEROL 1,000 UNIT TAB PO SCH (09:46)
[2016-08-16] MEDS: VIT A,C & E-LUTEIN-MINERALS 1 EACH TAB PO SCH (09:46)
--- NOTE | 2016-08-16 12:08 | PN ---
This is an 86-year-old lady with episode of syncope being evaluated from a neurology standpoint as well. Had an EEG today. Her vital signs are stable. There are no orthostatic changes. S1, S2 heard normally. Short systolic murmur noted. Lungs are clear. Abdomen and lower extremity exam unchanged. Since yesterday for the last 24 hours, there is no evidence of any tachy or bradyarrhythmia. Neurology work-up is in progress, carotid Doppler is unremarkable. EEG results are pending. I am recommending that she can be discharged with a 30-day event monitor and I will see her in 5 weeks. I discussed my thoughts in detail with the patient. She understands and agrees to follow.
[2016-08-16 12:22] VITALS: BP 146/77; PULSE 90; TEMP 97.2
[2016-08-16] MEDS: carBAMazepine 200 MG TAB PO PRN (13:36)
--- NOTE | 2016-08-16 14:46 | MR ---
EXAMINATION TYPE: MR brain wo con DATE OF EXAM: 08/16/2016 2:35 PM COMPARISON: CT brain from 3 days ago. HISTORY: dementia per order. Admitted for syncope and fall injury 3 days ago. TECHNIQUE: Multiplanar, multisequence imaging of the brain and brainstem is performed without IV cont rast. FINDINGS: Diffusion weighted images demonstrate no evidence of a recent infarct or other diffusion abnormality. There is no worrisome extra-axial fluid collection. There is ventricular and sulcal prominence consis tent with diffuse cerebral atrophy. Degree of ventricular prominence particularly posterior aspect of the lateral ventricles including occipital horns is slightly out of proportion to degree of sulcal e ffacement and a normal pressure hydrocephalus is not excluded. No significant change from recent CT i s identified There are focal and confluent areas of T2 hyperintensity seen throughout the white matte r bilaterally most pronounced the periventricular levels. Lesions are nonspecific in appearance and d istribution but most likely on basis of product of chronic small vessel ischemic change. Midline structures demonstrate normal morphology. The craniocervical junction appears within normal limits. Normal vascular flow voids are present. The right lens remains thinned. The paranasal sinuses show small air-fluid level remaining present in the left maxillary sinus. Remainder paranasal sinuse s are clear. IMPRESSION: 1. Persistent mild to moderate diffuse cerebral atrophy and moderate to advanced chronic small vessel ischemic change, a normal pressure hydrocephalus is not excluded. No significant change from recent CT identified. Comparison with old outside CT or MRI would be beneficial to assess for recent interva l change in ventricular size. 2. Possible left-sided acute maxillary sinus disease redemonstrated not significantly changed from re cent CT, clinical correlation advised.
--- NOTE | 2016-08-16 15:28 | P.PN ---
Subjective This patient is a 86-year-old right-handed white female who was seen in neurology consultation yesterday for acute syncopal episode and multiple falls. Over the past 2 weeks the patient has had multiple falls. Apparently yesterday she was having dinner at a restaurant came outside and collapsed in front of her car. This was witnessed by several bystanders. EMS was called to the scene and she was brought into the emergency room for further evaluation. She sustained a laceration over her left eye as well as periorbital swelling and contusion to the left eye. Krysta when his computed tomography scan of the brain subsequently was admitted to Hospital. Computed tomography scan of cervical spine reveals subluxation of C3 over C4. She does have a history of cardiac disease and had undergone a stent placement in 2005. Cardiology is following the patient as well. Cardiology is requesting and ECG Holter monitor for further management. Patient's CAT scan was reviewed and did reveal multiple hypodensities. She does have a history of small cell carcinoma of the lung in the past. We recommended a MRI of the brain for further evaluation. She will undergo routine EEG to rule out seizure disorder. Patient's routine EEG was reviewed and fails to reveal any evidence for epileptiform discharge. MRI of the brain was completed without contrast and reveals no evidence of acute stroke. Patient is being considered for discharge to home today. She may follow-up in the outpatient neurology clinic in 3-4 weeks. We will continue close neurological follow-up with this patient during this admission. Objective - Vital Signs Vital signs: Vital Signs Temp 97.4 F L 08/16/16 08:00 Pulse 87 08/16/16 12:00 Resp 16 08/16/16 12:00 BP 113/60 08/16/16 08:00 Pulse Ox 92 L 08/16/16 08:00 Intake & Output 08/15/16 08/16/16 08/16/16 18:59 06:59 18:59 Intake Total 240 120 Balance 240 120 Weight 72 kg Intake: Oral 240 120 Other: Voiding Method Toilet Toilet Toilet # Voids 1 1 2 - Exam Physical examination: PHYSICAL EXAMINATION: Patient is resting comfortably in bed. VITAL SIGNS: Blood pressure is [140/70]. Heart rate is [77]. Respiration is [16] . Temperature is [98.2]. HEENT: Head is atraumatic, neck is supple, there were no carotid bruits. CHEST: Lungs are clear to auscultation and percussion. CARDIAC: S1, S2 normal rate and rhythm. There is no murmur. ABDOMEN: Soft and nontender. Bowel sounds are present. EXTREMITIES: There is no pedal edema. Peripheral pulses are present. Neurological examination: Patient's neurological examination is unchanged from yesterday. - Labs CBC & Chem 7: 08/13/16 17:51 08/13/16 17:51 Assessment and Plan (1) Vasovagal syncope Status: Acute Code(s): R55 - SYNCOPE AND COLLAPSE (2) Closed head injury Status: Acute Code(s): S09.90XA - UNSPECIFIED INJURY OF HEAD, INITIAL ENCOUNTER (3) Concussion Status: Acute Code(s): S06.0X9A - CONCUSSION W LOSS OF CONSCIOUSNESS OF UNSP DURATION, INIT (4) Facial laceration Status: Acute Code(s): S01.81XA - LACERATION W/O FOREIGN BODY OF OTH PART OF HEAD, INIT ENCNTR Plan: This patient is a 86-year-old female was admitted to hospital after suffering acute syncopal episode. Patient was at a restaurant was returning to her car when she went down suddenly. She sustained laceration and contusion to the left periorbital region of the face. She does not have memory of the actual details of the event. EMS was called and she was brought into the emergency room where she was seen in the ER by Dr. London. Computed tomography scan of the brain and cervical spine was completed. CT of the brain revealed cerebral atrophy and normal pressure-type hydrocephalus. Review the CAT scan however reveals only ventriculomegaly with multiple areas of hypodensity of unclear etiology. Patient does have a history of small cell lung cancer. Be recommending an MRI of the brain for further evaluation. We will also obtain an EEG for further evaluation of seizure disorder. Patient was advised of the [employer] driving law which states she should not be driving for appeared 6 months following any syncopal episode and/or seizure. Depending on the test results further recommendations will be given. Her carotid Doppler failed to reveal any evidence of severe carotid artery stenosis. Her echocardiogram of the heart does reveal septal hypokinesis. We will await further recommendations from cardiology. She underwent routine EEG and MRI of the brain today results are as noted above. The MRI fails to reveal any evidence of acute stroke. EEG fails to reveal any epileptiform discharges. Patient may follow-up in the outpatient neurology clinic in 3-4 weeks. Her overall prognosis at this time remains very guarded.
--- NOTE | 2016-08-16 23:53 | EEG ---
DATE OF SERVICE: 08/16/2016 INDICATIONS FOR EXAMINATION: This patient is an 86 -year-old female being evaluated for recent syncopal episode and collapse. The patient sustained head confusion following syncope. AGE: 86Y EEG FINDINGS: A routine 21 channel awake digital EEG recording was accomplished utilizing the 10-20 international system with bipolar and referential montages. The background activity in the most alert resting state consists of a low to medium amplitude, fairly well developed and well sustained 6-7 Hz activity over the posterior head regions. This posterior rhythm attenuates to eye opening. There is a small amount of low amplitude 18-20 Hz beta activity seen maximally over the anterior head regions. Muscle and movement artifacts was observed on a few occasions during the tracing. Hyperventilation was not performed. Photic stimulation at flash frequencies of 2-30 Hz produced a good symmetrical occipital driving response. No epileptiform discharges were seen. IMPRESSION: This EEG is moderately abnormal in a diffuse fashion due to slowing of the EEG background. The EEG failed to reveal any focal, lateralized or epileptiform abnormalities. Clinical correlation is recommended.
--- NOTE | 2016-08-17 18:25 | DS ---
DATE OF ADMISSION: 08/13/2016 DATE OF DISCHARGE: 08/16/2016 The patient is an 86-year-old admitted with syncopal episode. Patient recently had multiple ( ), although cardiology workup including echocardiogram and carotid Doppler were negative and patient had a CT of the ( ) which as per neurologist was suspicious for some lesions because of which they obtained an MRI. The MRI did not reveal any lesion. The patient is otherwise clinically doing well. Patient will need a Holter, which will be picked up by her and the family from Dr. Caryn Dean's clinic. Patient will be discharged. The patient was seen and examined on the day of discharge. Vitals are stable. PHYSICAL EXAMINATION: GENERAL: The patient is alert and oriented x3, not in any acute distress. Well developed, well nourished. HEENT: Pupils are round and equally reacting to light. EOMI. No scleral icterus. No conjunctival pallor. Normocephalic, atraumatic. No pharyngeal erythema. No thyromegaly. CARDIOVASCULAR: S1 and S2 present. No murmurs, rubs, or gallops. PULMONARY: Chest is clear to auscultation, no wheezing or crackles. ABDOMEN: Soft, nontender, nondistended, normoactive bowel sounds. No palpable organomegaly. MUSCULOSKELETAL: No joint swelling or deformity. EXTREMITIES: No cyanosis, clubbing, or pedal edema. NEUROLOGICAL: Gross neurological examination did not reveal any focal deficits. SKIN: No rashes. FINAL DIAGNOSES: 1. Syncopal episode, management as mentioned above. 2. Chronic obstructive pulmonary disease without any acute exacerbation . 3. Coronary artery disease. 4. Dyslipidemia. The patient will be discharged today. Follow with primary care physician, Dr. Dedrick Enriquez in about 3 to 7 days. [facility] will follow the patient. The patient will also follow with Dr. Caryn Dean on 18 of September at 4 p.m. Activity as tolerated. Cardiac diet.
== END 2016-08-16 15:25 | disposition home or self-care (01) ==
LOC: EC 17:36 → 3OBS 20:58
PROVIDERS: ADMIT Hospitalist; ATTEND Hospitalist
DX: R55 Syncope and collapse (principal); S01.112A Laceration without foreign body of left eyelid and periocular area, initial encounter; Z79.899 Other long term (current) drug therapy; Z23 Encounter for immunization; Z88.8 Allergy status to other drugs, medicaments and biological substances; Z88.5 Allergy status to narcotic agent; J45.909 Unspecified asthma, uncomplicated; I25.10 Atherosclerotic heart disease of native coronary artery without angina pectoris; J44.9 Chronic obstructive pulmonary disease, unspecified; E78.5 Hyperlipidemia, unspecified; M19.90 Unspecified osteoarthritis, unspecified site; Z87.891 Personal history of nicotine dependence; E55.9 Vitamin D deficiency, unspecified; E78.00 Pure hypercholesterolemia, unspecified; G50.0 Trigeminal neuralgia; H26.9 Unspecified cataract; I11.9 Hypertensive heart disease without heart failure; I25.2 Old myocardial infarction; R29.6 Repeated falls; S06.0X9A Concussion with loss of consciousness of unspecified duration, initial encounter; W19.XXXA Unspecified fall, initial encounter; Z79.51 Long term (current) use of inhaled steroids; Z82.49 Family history of ischemic heart disease and other diseases of the circulatory system; Z85.118 Personal history of other malignant neoplasm of bronchus and lung; Z95.5 Presence of coronary angioplasty implant and graft; Z96.642 Presence of left artificial hip joint; W22.8XXA Striking against or struck by other objects, initial encounter; Y93.01 Activity, walking, marching and hiking; Y92.481 Parking lot as the place of occurrence of the external cause; Z92.21 Personal history of antineoplastic chemotherapy; Z92.3 Personal history of irradiation
CPT/HCPCS: 96361 ×3; 12013; 96360 ×2; 90471; 99285; 36415; 94640 ×4; 95816; 93005; 93306; 97161; 84439; 80156; 80053; 84443; 84484 ×3; 85025; 70150; 73562; 93880; 72125; 70450; 70551; 90715; G0378 ×4

== ENCOUNTER → 2018-05-07 | Day surgery (SDC) | payer MEDICARE, BC ==
[2018-05-07 12:12] VITALS: TEMP 98
[2018-05-07 12:14] VITALS: BP 132/68; PULSE 76; RESP 16
--- NOTE | 2018-05-07 14:40 | US ---
EXAMINATION TYPE: US FNA thyroid DATE OF EXAM: 05/07/2018 COMPARISON: NONE HISTORY: Thyroid nodule left lower pole. Maximal barrier technique was utilized. After informed consent, skin overlying the lesion was locali zed with ultrasound and the overlying skin prepped and draped. Ultrasound was utilized using sterile technique. Lidocaine was used for local anesthesia. Four passes with a 27-gauge needle and a single pass with a 25-gauge needle were made into the nodule and aspirated specimen was submitted to cytolog y. Following the procedure hemostasis achieved. No immediate complication. The patient discharged in stable condition. IMPRESSION: STATUS POST ULTRASOUND GUIDED FINE NEEDLE ASPIRATION OF THYROID NODULE, PATHOLOGY IS PEND ING. THIS PROCEDURE WAS PERFORMED BY THE UNDERSIGNED.
== END ==
LOC: RADPROMAIN 09:41
PROVIDERS: ATTEND Otolaryngology
DX: E04.1 Nontoxic single thyroid nodule (principal)
CPT/HCPCS: 10022; 76942; 88173; 88305

== ENCOUNTER 2018-11-28 00:46 | Emergency (ER) | payer MEDICARE, BC ==
[2018-11-28 01:02] VITALS: TEMP 97.4
--- NOTE | 2018-11-28 01:37 | ED ---
Fall HPI - General Chief Complaint: Fall Stated Complaint: back/neck/shoulder pain Time Seen by Provider: 11/28/18 00:49 Source: patient, EMS Mode of arrival: EMS - History of Present Illness Initial Comments: Patient is an 88-year-old woman who presents after having a fall at home. Patient uses a lift chair on the stairs. She attempted to sit in the lift chair and missed and then slid down 5 steps. She states she is having pain to the upper back and neck. MD Complaint: fall -: hour(s) Fall From: chair, down stairs (#) (5) When Fall Occurred: 1-[address] Fall Occurred: home Loss of Consciousness: none Prolonged Down Time?: no Location: neck, back Severity: mild Quality: dull - Related Data Home Medications Medication Instructions Recorded Confirmed Atorvastatin Calcium [Lipitor] 80 mg PO DAILY 08/13/16 11/04/18 Cholecalciferol [Vitamin D3] 5,000 unit PO DAILY 08/13/16 11/04/18 Mirabegron [Myrbetriq] 25 mg PO DAILY 08/13/16 11/04/18 Tiotropium 18 Mcg/Puff [Spiriva] 1 cap INHALATION DAILY 08/13/16 11/04/18 Vit C/E/Zn/Coppr/Lutein/Zeaxan 1 cap PO BID 08/13/16 11/04/18 [Preservision Areds 2 Softgel] carBAMazepine [TEGretol] 400 mg PO BID PRN 08/13/16 11/04/18 Budesonide-Formot 160-4.5 Mcg 2 puff INHALATION BID 03/30/18 11/04/18 [Symbicort 160-4.5 Mcg Inhaler] Loratadine [Claritin] 10 mg PO DAILY 03/30/18 11/04/18 Metoprolol Succinate (ER) [Toprol 25 mg PO DAILY 03/30/18 11/04/18 Xl] Allergies Allergy/AdvReac Type Severity Reaction Status Date / Time guaifenesin [From Mucinex] Allergy was told Verified 11/04/18 14:33 by not to use codeine AdvReac Abdominal Verified 11/04/18 14:33 Pain Review of Systems ROS Statement: Those systems with pertinent positive or pertinent negative responses have been documented in the HPI. ROS Other: All systems not noted in ROS Statement are negative. 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,macular degeneration aleksandra eyes Last Myocardial Infarction Date:: unknown History of Any Multi-Drug Resistant Organisms: None Reported Past Surgical History: Heart Catheterization With Stent, Tonsillectomy Additional Past Surgical History / Comment(s): right knee and left hip replacement,heart stent x1,lung bx Past Anesthesia/Blood Transfusion Reactions: No Reported Reaction, Motion Sickness Date of Last Stent Placement:: unknown Past Psychological History: No Psychological Hx Reported Smoking Status: Former smoker Past Alcohol Use History: Occasional Past Drug Use History: None Reported - Past Family History Mother Family Medical History: No Reported History Father Family Medical History: CVA/TIA, Myocardial Infarction (PR) General Exam Limitations: no limitations General appearance: alert, in no apparent distress Head exam: Present: atraumatic, normocephalic Eye exam: Present: normal appearance Neck exam: Present: tenderness, other (Cervical,) Respiratory exam: Present: normal lung sounds bilaterally. Absent: respiratory distress, wheezes, rales, rhonchi, stridor Cardiovascular Exam: Present: regular rate, normal rhythm, normal heart sounds. Absent: systolic murmur, diastolic murmur, rubs, gallop GI/Abdominal exam: Present: soft. Absent: distended, tenderness, guarding, rebound, mass Extremities exam: Present: normal inspection Back exam: Present: normal inspection. Absent: vertebral tenderness Neurological exam: Present: alert. Absent: motor sensory deficit Skin exam: Present: warm, dry, intact, normal color. Absent: rash Course Vital Signs 11/28/18 00:57 Temperature 97.4 F L Pulse Rate 77 Respiratory 20 Rate Blood Pressure 150/68 O2 Sat by Pulse 98 Oximetry Disposition Clinical Impression: Fall, Compression fracture, Lung nodule Disposition: HOME SELF-CARE Condition: Fair Instructions (If sedation given, give patient instructions): Fall Prevention for Older Adults (ED), Vertebral Compression Fracture (ED) Additional Instructions: As we discussed, follow-up with your doctor regarding the lung nodule to have repeat imaging. Is patient prescribed a controlled substance at d/c from ED?: No Referrals: Dedrick Enriquez MD [Primary Care Provider] - 1-2 days
--- NOTE | 2018-11-28 02:26 | CT ---
EXAM: CT Head Without Intravenous Contrast CLINICAL HISTORY: ITS.REASON CT Reason: Pain TECHNIQUE: Axial computed tomography images of the head/brain without intravenous contrast. CTDI is 25.8, 10.1 mGy and DLP is 819.7 mGy-cm. This CT exam was performed using one or more of the following dose reduction techniques: automated exposure control, adjustment of the mA and/or kV according to patient size, and/or use of iterative reconstruction technique. COMPARISON: CT/08/26. FINDINGS: Brain: No hemorrhage. No acute cortical infarct. No mass effect or midline shift. Involutional changes and small vessel disease. Ventricles: Persistent ventriculomegaly. Bones/joints: No acute fracture. Soft tissues: Unremarkable. Sinuses: Mild sinus disease. Mastoid air cells: Unremarkable as visualized. IMPRESSION: No intracranial hemorrhage or skull fracture. EXAM: CT Cervical Spine Without Intravenous Contrast CLINICAL HISTORY: ITS.REASON CT Reason: Pain TECHNIQUE: Axial computed tomography images of the cervical spine without intravenous contrast. CTDI is 25.8, 10.1 mGy and DLP is 819.7 mGy-cm. This CT exam was performed using one or more of the following dose reduction techniques: automated exposure control, adjustment of the mA and/or kV according to patient size, and/or use of iterative reconstruction technique. COMPARISON: No relevant prior studies available. FINDINGS: Vertebrae: No evidence of acute cervical spine fracture. Age- indeterminate T3 and T4 compression fractures, new since 2017. Discs/spinal canal/neural foramina: Multilevel degenerative changes. Soft tissues: Unremarkable. Thyroid: Calcified left thyroid nodule. Lung apices: Chronic lung changes with patchy bilateral infiltrates. Spiculated nodular lesion in the left upper lung, cannot exclude neoplastic etiology. IMPRESSION: 1. No evidence of acute cervical spine fracture. 2. Age-indeterminate T3 and T4 compression fractures, new since 2017. 3. Chronic lung changes with patchy bilateral infiltrates. Spiculated nodular lesion in the left upper lung, cannot exclude neoplastic etiology. Correlate with clinical history and prior imaging if available. Chest CT may be considered if indicated. 4. Calcified left thyroid nodule. Nonemergent ultrasound can further evaluate.
--- NOTE | 2018-11-28 02:32 | XR ---
EXAM: XR Chest, 2 Views CLINICAL HISTORY: ITS.REASON XR Reason: Pain TECHNIQUE: Frontal and lateral views of the chest. COMPARISON: CT C-spine 11/28/18. FINDINGS: Lungs: Patchy bilateral atelectasis/scarring or infiltrate. Left upper lung nodule better seen on prior CT. Chronic lung changes. Pleural space: Trace pleural effusions not excluded. Heart: Unremarkable. Mediastinum: Prominent perihilar opacities, possible adenopathy, mass, consolidation, or other etiology. Bones/joints: Age-indeterminate thoracic compression deformities. IMPRESSION: 1. Patchy bilateral atelectasis/scarring or infiltrate. Left upper lung nodule better seen on prior CT. 2. Prominent perihilar opacities, possible adenopathy, mass, consolidation, or other etiology.
[2018-11-28 03:09] VITALS: BP 127/75; PULSE 63; RESP 14
== END 2018-11-28 03:21 | disposition home or self-care (01) ==
LOC: EC 00:46
DX: M48.54XA Collapsed vertebra, not elsewhere classified, thoracic region, initial encounter for fracture (principal); R91.1 Solitary pulmonary nodule; M54.2 Cervicalgia; I25.10 Atherosclerotic heart disease of native coronary artery without angina pectoris; J44.9 Chronic obstructive pulmonary disease, unspecified; E78.5 Hyperlipidemia, unspecified; I25.2 Old myocardial infarction; Z87.891 Personal history of nicotine dependence; Z88.5 Allergy status to narcotic agent; Z88.8 Allergy status to other drugs, medicaments and biological substances; Z79.51 Long term (current) use of inhaled steroids; Z79.899 Other long term (current) drug therapy; Z85.118 Personal history of other malignant neoplasm of bronchus and lung; Z87.448 Personal history of other diseases of urinary system; Z95.5 Presence of coronary angioplasty implant and graft; Z96.642 Presence of left artificial hip joint; Z96.651 Presence of right artificial knee joint; W10.9XXA Fall (on) (from) unspecified stairs and steps, initial encounter; Y93.89 Activity, other specified; Y92.009 Unspecified place in unspecified non-institutional (private) residence as the place of occurrence of the external cause
CPT/HCPCS: 70450; 71046; 72125; 99284